=== PATIENT | female | born 1970 | race Two or more races ===

== ENCOUNTER 2025-06-19 16:03 | Emergency (ER) | payer MEDICAID, SELFPAY ==
[2025-06-19 16:18] VITALS: BP 121/74; PULSE 130; RESP 20; TEMP 38.1; O2SAT 95
--- NOTE | 2025-06-19 16:24 | XR_ITS ---
Examination: CT abdomen, without intravenous contrast. CT pelvis, without intravenous contrast. CT abdomen, with intravenous contrast. CT pelvis, with intravenous contrast. 2-D sagittal coronal reconstructions. Date and time of exam: June 19, 2025, 1952 hours INDICATIONS: Right-sided abdominal pain right flank pain beginning 1 week ago CTDI: vol (mGy) 17 DLP: (mGycm) 931 Technique: Multiple 3.0 axial images of the abdomen and pelvis without intravenous contrast, 3.0 mm slice thickness. Multiple 3.0 postcontrast images abdomen and pelvis also obtained, post intravenous injection 60 cc Isovue 370 2-D sagittal and coronal reconstructions. Low dose protocols were performed. One or more of the following dose reduction techniques were used; automated exposure control, adjustment of the mA and/or KV according to patient size, use of iterative reconstruction technique. Findings: No focal liver or splenic lesions Absent gallbladder No extrahepatic biliary tract dilatation Normal pancreas Normal adrenal glands No renal or ureteral calculi, no hydronephrosis Mild bilateral renal scarring Aorta normal size Normal appendix No bowel obstruction Contracted urinary bladder No pelvic mass Moderate osteopenia IMPRESSION: No renal or ureteral calculi, no hydronephrosis, no renal edema Normal appendix No bowel obstruction diverticulitis or free air. No bladder mass or bladder calculi
--- NOTE | 2025-06-19 16:28 | PD.EDRME ---
Rapid Medical Screening Exam RME Arrival date/time: 06/19/25 16:03 55-year-old female reports with complaints of diffuse abdominal pain and fever x 3 days Chief Complaint: Urogenital-Female Time Seen by Provider: 06/19/25 16:09 Vital signs: Vital Signs Temperature 100.6 F H 06/19/25 16:18 Pulse Rate 130 H 06/19/25 16:18 Respiratory Rate 20 06/19/25 16:18 Blood Pressure 121/74 06/19/25 16:18 Pulse Oximetry (%) 95 06/19/25 16:18 Oxygen Delivery Method Room Air 06/19/25 16:18
[2025-06-19 16:56] LABS: Lactate (Lactic Acid) 1.0 mMol/L (0.4-2.0)
[2025-06-19 16:59] LABS: Basophils # (Auto) 0.1 Thou/mm3 (0.0-0.2); Basophils % (Auto) 1 % (0-2.5); Eosinophils # (Auto) 0.3 Thou/mm3 (0.0-0.5); Eosinophils % (Auto) 3 % (0-10); Hematocrit 39.0 % (36.0-46.0); Hemoglobin 13.6 g/dL (12.0-16.0); Immature Granulocytes Auto 0.02 Thou/mm3 (0.00-0.00); Lymphocytes # (Auto) 2.2 Thou/mm3 (1.0-4.8); Lymphocytes % (Auto) 28 % (10-50); Mean Corpuscular HGB Conc 34.9 g/dl (31.0-37.0); Mean Corpuscular Hemoglobin 30.2 pg (25.0-35.0); Mean Corpuscular Volume 87 fL (80-100); Monocytes # (Auto) 0.9 Thou/mm3 (0.0-0.8); Monocytes % (Auto) 11 % (0-12); Neutrophils # (Auto) 4.4 Thou/mm3 (1.8-7.7); Neutrophils % (Auto) 57 % (37-80); Nucleated Red Blood Cell # 0.00 Thou/mm3 (0.00-0.00); Nucleated Red Blood Cell % 0 /100 WBC (0); Platelet Count 297 Thou/mm3 (140-440); RDW Standard Deviation 37.6 fL (36.4-46.3); Red Blood Count 4.51 Miln/mm3 (4.00-5.20); White Blood Count 7.7 Thou/mm3 (3.6-11.0)
[2025-06-19 17:34] LABS: Collection Type, Urine Clean Catch
[2025-06-19 17:38] LABS: Bilirubin,Urine Negative (Negative); Blood,Urine 2+ (Negative); Clarity,Urine Clear (Clear/Hazy); Color,Urine Lt-Yellow (Lt Yel-Yel); Culture Indicated,Urine Not Indicated; Glucose, Urine Negative (Negative); Ketones,Urine Negative (Negative); Leukocyte Esterase,Urine Positive (Negative); Nitrite,Urine Negative (Negative); PH,Urine 6.5 (5.0-7.0); Protein,Urine Negative (Neg - Trace); RBC,Urine 6 /hpf (0-3); Specific Gravity,Urine 1.014 (1.001-1.035); Squamous Epithelial Cell,Urine 2 /hpf (0-5); Urobilinogen,Urine Negative mg/dL (0.0-1.0); WBC,Urine 2 /hpf (0-5)
[2025-06-19 18:04] LABS: Alanine Aminotransferase 26 U/L (10-49); Albumin, Serum 5.0 gm/dL (3.5-5.0); Albumin/Globulin Ratio 1.7 (1.2-2.2); Alkaline Phosphatase 109 U/L (46-116); Anion Gap 10 (7-16); Aspartate Amino Transferase 24 U/L (0-34); BUN/Creatinine Ratio 11 Ratio (12-20); Bilirubin,Total 0.7 mg/dL (0.3-1.2); Blood Urea Nitrogen 10 mg/dL (9-23); Calcium 9.4 mg/dL (8.3-10.6); Calcium (Corrected) 9.4 mg/dL (8.5-10.1); Carbon Dioxide 27.1 mMol/L (20.0-31.0); Chloride 103 mMol/L (98-107); Creatinine (Component) 0.9 mg/dL (0.6-1.3); Globulin 3.0 gm/dL (2.3-3.5); Glucose 122 mg/dL (74-106); Lipase 40 U/L (12-53); Osmolality,Calculated 279 (275-295); Potassium 3.9 mMol/L (3.4-5.1); Procalcitonin 0.07 ng/ml (0.0-0.49); Sodium 140 mMol/L (136-145); Total Protein 8.0 gm/dL (5.7-8.2); eGFR > 60 See Note
--- NOTE | 2025-06-19 18:46 | PD.EDFMALE ---
ED Female Urogenital RME/HPI General Chief complaint: Urogenital-Female Stated complaint: FEVER, DYSURIA, ABD/RIGHT SIDED BACK PAIN, NAUSEA Time Seen by Provider: 06/19/25 16:09 Arrival date/time: 06/19/25 16:03 Mode of arrival: ambulatory Limitations: no limitations RME / HPI RME / HPI Narrative: 06/19/25 16:03 55-year-old female reports with complaints of diffuse abdominal pain and fever x [address] Long evaluation Patient is a 55-year-old female medical history notable for prior hemorrhagic cystitis is in the emergency department with concerns for diffuse abdominal pain and fever x 3 days. Patient states that she has had abdominal pain for about a year. Has never been evaluated for this. She went to her clinic earlier today because over the last couple days she has felt that she has had increased urinary frequency. Patient states that she gets the symptoms frequently, at which point she drinks a lot of water because she knows that she would be in the process of getting a urinary tract infection. Patient has never had a colonoscopy. Patient has had C-sections and a cholecystectomy. Related Data Home Medications ?Medication ?Instructions ?Recorded ?Confirmed Multivitamins * (CENTRUM *) 1 tab PO QDAY #0 tabs 06/21/15 10/25/17 Previous Rx's ?Medication ?Instructions ?Recorded ibuprofen 600 mg tablet 1 tab PO Q8HR PRN INFLAMMATION #30 09/12/16 tabs albuterol sulfate 90 mcg/actuation 2 puff inhalation Q4HR PRN 05/06/17 aerosol inhaler (ProAir HFA) shortness of breath #1 inh cyclobenzaprine 10 mg tablet 10 mg PO TID PRN muscle spasm #20 01/04/19 tabs ibuprofen 600 mg tablet 600 mg PO Q6H PRN pain #20 tabs 01/04/19 cephalexin 500 mg capsule 500 mg PO QID #20 caps 06/19/25 Allergies Allergy/AdvReac Type Severity Reaction Status Date / Time strawberry Allergy Severe SWELLING Verified 09/11/19 13:09 AND SHORTNESS OF BREATH bee venom protein (honey bee) Allergy Verified 09/11/19 13:09 Bee Stings Allergy Severe HEART Uncoded 09/11/19 13:09 RACING, HARD TO BREATHE ED Exam General Limitations: Present no limitations General appearance: Present alert and in no apparent distress Head Head exam: Present atraumatic and normocephalic Eye Eye exam: Present normal appearance ENT ENT exam: Present normal exam and normal oropharynx Neck Neck exam: Present normal inspection Chest Chest inspection: Present normal inspection and symmetric chest wall rise Respiratory Respiratory exam: Present normal lung sounds bilaterally; Absent respiratory distress Cardiovascular Cardiovascular exam: Present tachycardia Abdominal Exam Abdominal exam: Present soft and tenderness (Diffuse tenderness to palpation, no rebound or guarding); Absent distention Extremities Exam Extremities exam: Present normal inspection and full ROM Neurological Exam Neurological exam: Present alert and other (No focal neurodeficits) Skin Skin exam: Present warm, dry and intact Course Quality Measures none Orders Category Date Time Status CT Screening NOW Care 06/19/25 16:26 Active EKG (ED ONLY) *Do not use* NOW Care 06/19/25 18:[address] abdomen pelvis wo/w con Stat Exams 06/19/25 16:24 Taken EKG (ED Only) Stat Exams 06/19/25 18:51 Draft CBC Stat Lab 06/19/25 16:44 Completed CMP [Comprehensive Metabolic Panel] Stat Lab 06/19/25 16:44 Completed Lactate (Lactic Acid) Stat Lab 06/19/25 16:44 Completed Lipase Stat Lab 06/19/25 16:44 Completed Procalcitonin Stat Lab 06/19/25 16:44 Completed Troponin I Stat Lab 06/19/25 19:07 Completed UA, C/S IF [Urinalysis, C/S if Indicated] Stat Lab 06/19/25 17:06 Completed Urine Culture Stat Lab 06/19/25 20:57 Ordered Acetaminophen Tab [Tylenol Tab] Med 06/19/25 18:52 Discontinued 650 mg PO X1 ONE Dicyclomine [Bentyl] Med 06/19/25 20:53 Once 10 mg PO X1 ONE Ringers Lactated 1000 ml [Lactated Ringers] 1,000 ml Med 06/19/25 18:53 Discontinued IV 999 mls/hr cephALEXin [Keflex] Med 06/19/25 20:55 Once 500 mg PO X1 ONE Vital Signs Vital signs: Vital Signs Temperature 100.6 F H 06/19/25 16:18 Pulse Rate 130 H 06/19/25 16:18 Respiratory Rate 20 06/19/25 16:18 Blood Pressure 121/74 06/19/25 16:18 Pulse Oximetry (%) 95 06/19/25 16:18 Oxygen Delivery Method Room Air 06/19/25 16:18 Urogenital - Female MDM Narrative MDM Narrative:: Patient is a 55-year-old female into the emergency department concerns for diffuse abdominal pain. Vital signs and exam as listed. Concern for urinary tract infection, pancreatitis, obstruction perforation, ACS, arrhythmia among others. Prior provider evaluated patient. Ordered labs, CT scan with contrast also offered medication for symptom relief. Labs without any acute hematologic or significant metabolic abnormality urinalysis with 2+ blood, leuk esterase positive, nitrite negative, 6 red blood cells, 2 red blood cells 2 squames no bacteria. Will send for culture. Given patient with dysuria and urinary frequency, will treat for urinary tract infection patient not septic at this time. CT abdomen pelvis without evidence of any acute abnormalities. Per chart review patient has a history of microscopic cystitis has been in the care of Dr Hunter urology. On my evaluation patient hemodynamically stable, not in distress. Symptoms well-controlled, she no longer has dysuria no urinary frequency. States she has been drinking a lot of fluid at home. Patient data External records reviewed:: [facility] previous records Clinical information provided by:: patient Social determinants that could affect healthcare access:: none Patient has the following chronic illnesses:: See MDM How is presenting disease/condition affected by chronic disease/condition?: exacerbated by Evaluation data The following diagnostics were reviewed and interpreted by me:: lab results, radiology exam(s) and EKG tracing(s) Lab and/or radiology exams considered but not ordered:: None Interpretation Summary: See MDM Medications / Prescriptions Medications or Prescriptions considered but not ordered:: None Medication administrations:: Medication Administration History Discontinued Medications Acetaminophen (Acetaminophen 325 Mg Tablet) 650 mg PO X1 ONE Stop: 06/19/25 18:53 Last Admin: 06/19/25 19:38 Dose: 650 mg Documented By: AM Cephalexin HCl (Cephalexin 250 Mg Capsule) 500 mg PO X1 ONE Stop: 06/19/25 20:56 Dicyclomine HCl (Dicyclomine 10 Mg Capsule) 10 mg PO X1 ONE Stop: 06/19/25 20:54 Lactated Ringer's (Lactated Ringers) 1,000 mls @ 999 mls/hr IV .Q1H1M ONE Stop: 06/19/25 19:53 Last Admin: 06/19/25 19:39 Dose: 999 mls/hr Documented By: AM See above Consultations Consultation(s) initiated? (list below): No Diagnosis Urogenital Female Differential Diagnosis: other Most likely diagnosis given after review of the tests above:: Hematuria, urinary tract infection, abdominal pain, fever Admission Indicated Admission indicated?: not indicated Admission Request Was there a request for admission?: No Disposition Plan Disposition Plan: Discharge Discharge Attestation Discharge Attestation: The patient and all family members were given an opportunity to ask questions and understood the discharge instructions. Discharge instructions specifically effects, indications for sooner follow up or return to the emergency department, and the expected course of current diagnosis. Patient condition: Stable Discharge Plan Plan Patient Disposition: HOME (Self Care) Prescriptions/Referrals Prescriptions/Med Rec: New cephalexin 500 mg capsule 500 mg PO QID Qty: 20 0RF No Action Multivitamins * (CENTRUM *) 1 EACH tablet 1 tab PO QDAY Qty: 0 ibuprofen 600 MG tablet 1 tab PO Q8HR PRN (Reason: INFLAMMATION) Qty: 30 0RF albuterol sulfate [ProAir HFA] 8.5 GM HFA aerosol inhaler 2 puff Inhalation Q4HR PRN (Reason: shortness of breath) Qty: 1 0RF ibuprofen 600 mg tablet 600 mg PO Q6H PRN (Reason: pain) Qty: 20 0RF cyclobenzaprine 10 mg tablet 10 mg PO TID PRN (Reason: muscle spasm) Qty: 20 0RF Referrals: No Primary/Family,Physician [Primary Care Provider] - In 1 week Problem List Clinical Impression: Abdominal pain, Urinary tract infection Patient/Caregiver Discharge Instructions Education Materials: ED CYSTITIS Female Adult Additional Instructions: Your CT scan did not identify any acute abnormalities. Given your symptoms and the findings on urine we will treat you for urinary tract infection. Highly recommend that you follow-up with your primary care doctor as well as your urologist to further discuss your symptoms. Please do so this week. I also recommend that you establish care with a discharge planner for further workup and management of your abdominal pain that you have had for about a year. You may benefit from a colonoscopy. Please return to the emergency department mediately if you have worsening symptoms or any new symptoms of concern. Print Language: Dominican Stand Alone Forms: [facility] Award Info., Patient Portal Info Letter
--- NOTE | 2025-06-19 18:51 | EKG_ITS ---
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
[2025-06-19 19:29] VITALS: BP 113/67; PULSE 115; RESP 18; TEMP 37.7; O2SAT 95
[2025-06-19 19:32] LABS: Troponin I < 0.002 ng/mL (0.0-0.045)
[2025-06-19 19:38] VITALS: TEMP 37.7
[2025-06-19] MEDS: ACETAMINOPHEN 325 MG TABLET 650 MG PO (19:38)
[2025-06-19] MEDS: RINGERS LACTATED 1000 ML 1,000 ML 999 ML IV (19:39)
[2025-06-19] MEDS: DICYCLOMINE 10 MG CAPSULE PO (21:06)
== END 2025-06-19 21:29 | disposition home or self-care (01) ==
PROVIDERS: Physician Assistant; Emergency Provider Emergency Medicine
DX: N30.90 Cystitis, unspecified without hematuria (principal)
CPT/HCPCS: 36415; 74178; 80053; 81001; 83605; 83690; 84145; 84484; 85025; 87086; 93005; 96360; 99284; A4649; J7120; Q9967; A9270